=== PATIENT | male | born 2000 | race African-American/Black ===

== ENCOUNTER 2025-05-08 02:06 | Inpatient (IN) | payer BC, SELFPAY ==
[2025-05-08] VITALS (11 sets, daily range): BP systolic 123–160; BP diastolic 57–88; PULSE 50–67; RESP 14–18; TEMP 36.4–37.1; O2SAT 94–99; BMI 25.0; BMI 26.6
--- NOTE | ~2025-05-08 | CT_ITS ---
EXAMINATION: CT FEMUR WITHOUT CONTRAST, RIGHT TECHNIQUE: Axial imaging was performed from the mid pelvis to the proximal tibia. No contrast. Coronal and sagittal reformatted images were generated from the original axial data set. ALARA: The examination used one or more of the following radiation dose reduction techniques: Automated exposure control, iterative reconstruction, and/or adjustment of mA and/or KV. DLP: 433 mGY*cm INDICATION: Sickle cell, AVN evaluation Prior: None FINDINGS: There are no marrow replacing lesions. There is moderate osteoarthritis in the knee with osteophytes and moderate joint space narrowing. ACL reconstruction has been performed. There is no knee joint effusion. There are numerous ossified bodies in the left knee also which may be intra-articular. There are also likely meniscal ossicles. Soft tissues are grossly unremarkable. CT/CT femur RT wo IV con IMPRESSION: No evidence of osteonecrosis. Moderate osteoarthritis of the right knee, likely posttraumatic in nature, status post ACL reconstruction. Electronically signed by: Orestes Hays MD 05/11/2025 05:31 PM EDT
--- NOTE | ~2025-05-08 | CT_ITS ---
EXAMINATION: CT PELVIS WITHOUT CONTRAST CLINICAL INFORMATION: Leg pain, sickle cell anemia, evaluate for AVN COMPARISON: None available. TECHNIQUE: Helical scanning was performed with submillimeter collimation through the pelvis. Sagittal and coronal multiplanar 2-D reconstructions were obtained. This CT examination was performed using dose optimization techniques as appropriate, variously including the following: *Automated exposure control *Adjustment of mA and/or kV according to patient size (this includes techniques or standardized protocols for targeted exams where dose is matched to indication/reason for exam; i.e. extremities or head) *Use of iterative reconstruction technique DLP: 377 mGY*cm FINDINGS: PELVIS: There is focal gas in the superficial subcutaneous soft tissues of the right lower quadrant of the abdomen likely related to insulin injection. Pelvic soft tissues are otherwise unremarkable. There is no evidence of a hip joint effusion. OSSEOUS STRUCTURES: There is somewhat circular lesion in the left iliac bone, adjacent to the anterior articular portion of the left SI joint . It measures 9 x 8 x 10 mm (CC by transverse by AP). Centrally located lucent and peripherally there is a thin band of sclerosis. Peripheral to this lesion, there is a 3 mm thick rind of osteopenia. There is no visible extension to the joint. There is no cortical destruction. No other bony lesions are identified. CT/CT pelvis wo IV con IMPRESSION: There is a 10 mm targetoid lesion in the left iliac bone, adjacent to the anterior mid left SI joint. This could represent an intraosseous abscess, bone infarct, and is much less likely to represent an intraosseous mass/neoplasm. If clinically indicated, follow-up MRI pelvis without and with IV contrast. Electronically signed by: Orestes Hays MD 05/11/2025 12:23 PM EDT
--- NOTE | ~2025-05-08 | US_ITS ---
CLINICAL HISTORY: sickle, ?organomegaly US abdomen complete Comparison: None provided Findings: The pancreas is obscured. The aorta and inferior vena cava are normal caliber. The liver is normal in size and echotexture. There is no intrahepatic bile duct dilatation. The common duct is 3 mm in diameter. Status post cholecystectomy. The main portal vein is antegrade. The right kidney is 11.4 cm in length. The left kidney is 10.9 cm in length. There is splenomegaly. The spleen measures up to 19.3 cm. No ascites. IMPRESSION: 1. Splenomegaly. If the patient has sickle cell disease a sequestration syndrome should be considered. Alternatively splenomegaly can be seen in sickle cell thalassemia. This document has been electronically signed by: Karel Briggs MD on 05/10/2025 11:44:35
--- NOTE | ~2025-05-08 | CT_ITS ---
Examination: CT of the left femur without contrast. TECHNIQUE: Axial imaging was performed from the mid pelvis to the proximal tibia. No contrast. Coronal and sagittal reformatted images were generated from the original axial data set. ALARA: The examination used one or more of the following radiation dose reduction techniques: Automated exposure control, iterative reconstruction, and/or adjustment of mA and/or KV. DLP: 433 mGY*cm INDICATION: Sickle cell, AVN evaluation Prior: None FINDINGS: There is groundglass density with serpentine and high density in the medial metadiaphysis 5 cm in length. There is no cortical destruction. No abnormalities are identified. There is no knee joint effusion. Soft tissues are grossly normal. CT/CT femur LT wo IV con IMPRESSION: Suspected osteonecrosis involving the distal left femur, medial metadiaphysis. Electronically signed by: Orestes Hays MD 05/11/2025 05:27 PM EDT
--- NOTE | ~2025-05-08 | XR_ITS ---
CLINICAL HISTORY: CP, hx sickle cell 1 view chest x-ray. Comparison: None Findings: Normal lung volumes. Lungs are clear. No pneumothorax or pleural effusion. Heart size normal. No passive venous congestion. No midline shift or tracheal deviation. No acute fracture. Radiopaque BB within the lateral soft tissues of the left elvin thorax Impression: 1. No acute cardiopulmonary disease. This document has been electronically signed by: Lorne Murphy MD on 05/08/2025 06:03:47
[2025-05-08 02:49] LABS: MANUAL DIFF FLAG NO
[2025-05-08 02:50] LABS: Hematocrit 39.9 % (42.0-52.0); Hemoglobin 14.3 g/dl (14.0-18.0); Imm Gran Abs Auto 0.02 X10*3/uL (0.00-0.03); Imm Gran Pct Auto 0.3 % (0.0-0.4); Lymphocytes Absolute Auto 1.5 X10*3/uL (1.2-4.9); Mean Corpuscular HGB Conc 35.8 g/dl (31.0-36.0); Mean Corpuscular Hemoglobin 27.3 pg (27.0-33.0); Mean Corpuscular Volume 76.3 fL (80.0-98.0); NRBC Abs Auto 0.000 X10*3/uL (0.0-0.012); NRBC Pct Auto 0.0 /100WBC (0.0-0.2); Platelet Count 118 X10*3/uL (160-400); Red Blood Count 5.23 X10*6/uL (4.60-5.80); White Blood Count 6.6 X10*3/uL (4.8-10.8)
[2025-05-08 03:06] LABS: Alanine Aminotransferase 28 U/L (0-40); Albumin Level 4.8 g/dL (3.5-5.0); Alkaline Phosphatase 95 U/L (39-117); Anion Gap 14 (12-20); Aspartate Amino Transferase 28 U/L (5-37); Blood Urea Nitrogen 7 mg/dL (9-16); Calcium 9.0 mg/dL (8.4-10.2); Carbon Dioxide 23 mmol/L (22-29); Chloride 106 mmol/L (96-108); Creatinine Clr Calc Pharmacy 146.6; Estimated Glomerular Filt Rate > 60; Potassium 3.8 mmol/L (3.3-5.1); Sodium 139 mmol/L (135-145); Total Protein 7.4 g/dL (6.5-8.0)
[2025-05-08 05:06] LABS: Reticulocytes Absolute 0.098 X10*6/uL (0.026-0.095)
--- NOTE | 2025-05-08 05:07 | ED.GENADULT ---
HPI - General Adult General Chief complaint: General Medical Stated complaint: severe bilateral leg pain, SOB Time Seen by Provider: 05/08/25 04:58 Source: patient Mode of arrival: ambulatory Limitations: no limitations History of Present Illness ED Provider: Dr. Justina Ayers HPI narrative: Patient comes to the emergency room complaining of severe lower extremity pain, some chest discomfort and shortness of breath secondary to severe pain. 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 Patient moved to [place] 2 years ago. Patient does not have a PCP. Patient states that it has been years since he has had any pain related to his condition. Patient denies any injury. Patient states that at work he does not do anything to physical that would cause physical aches and pains. Denies nausea vomiting diarrhea, denies any recent URIs or UTIs. Patient states that his mother also has sickle cell/beta thalassemia Related Data Allergies Allergy/AdvReac Type Severity Reaction Status Date / Time No Known Allergies Allergy Verified 05/08/25 02:32 Review of Systems Review of Systems: Constitutional : No Weight loss, No Fever, No Chills, No Night Sweats, No Fatigue, No Malaise ENT/Mouth : No Hearing loss, No Ear Pain, No Nasal Congestion, No Sinus Pain, No Hoarseness, No sore throat, No Rhinorrhea, No Swallowing Difficulty Eyes: No Eye Pain, No Swelling, No Redness, No Foreign Body, No Discharge, No Vision Changes Cardiovascular : No Chest Pain, No SOB, No Dyspnea on Exertion, No Orthopnea, No Edema, No Palpitations Respiratory : No Cough, No Sputum, No Wheezing, No Smoke Exposure, patient reports shortness of breath due to pain but no difficulty breathing Gastrointestinal : No Nausea, No Vomiting, No Diarrhea, No Constipation, No abdominal Pain, No Hematochezia, No Melena Genitourinary : no irregular bleeding, No Dysuria, No Urinary Frequency, No Hematuria, No Urinary Incontinence, No Urgency, No Flank Pain, No Urinary Flow Changes, No Hesitancy Musculoskeletal : Complaining of lower extremity myalgias, rib pain Skin : No Skin Lesions, No rash Neuro : No Weakness, No Numbness, No Paresthesias, No Loss of Consciousness, No Dizziness, No Headache Psych : No Anxiety/Panic, No Depression, No SI/HI/AH/VH, No Social Issues, Heme/Lymph: No Bruising, No Bleeding,No Lymphadenopathy Endocrine : No Polyuria, No Polydipsia, No Temperature Intolerance [facility] Past Medical History Medical History (Updated 05/08/25 @ 06:43 by Justina Ayers MD) Sickle cell beta thalassemia Social History Social History Advance Directives: No Advance Directives Information Provided: Yes Physical Exam ED Exam Exam: Appearance: Alert. Oriented X3. Patient looks uncomfortable Eyes: Pupils equal, round and reactive to light. ENT: Pharynx normal. Neck: Normal inspection. Neck supple. No lymph nodes noted. No crepitus CVS: Normal heart rate and rhythm. Pulses normal. Normal S1 and S2 Respiratory: No respiratory distress. Breath sounds normal. No Wheezing. No rales Abdomen: Soft and nontender. No rigidity. No distention. Skin: Skin warm and dry. Normal skin color. Normal skin turgor. Extremities: No lower extremity edema. No Lacerations. No Rash Neuro: Oriented X 3. No motor deficit. No sensory deficit. Moving all extremities. No slurred speech. CN 2 through 12 grossly intact Psych: calm, cooperative, normal affect Vital Signs: Vital Signs - 24 hr 05/08/25 02:30 05/08/25 04:22 05/08/25 05:49 Temperature 98.2 F 98.1 F Pulse Rate 55 56 Respiratory Rate 18 16 18 Blood Pressure 132/74 123/77 Pulse Oximetry 99 98 Oxygen Delivery Method Room Air Room Air 05/08/25 06:37 Temperature 97.9 F Pulse Rate 55 Respiratory Rate 16 Blood Pressure 140/88 H Pulse Oximetry 98 Oxygen Delivery Method Room Air BMI result Body Mass Index 25.0 Course Course Course Narrative: Patient with past medical history of sickle cell beta thalassemia comes to emergency room complaining of diffuse myalgias especially in the lower extremities. Patient has been here in [place] for 2 years. Patient states that it has been many years since he has had a crisis. Even when he used to live in [place], it has been years that he did not have a crisis. All of patient's labs pending X-ray pending Patient receiving IV fluids and morphine Medications Administered Discontinued Medications Generic Name Dose Route Start Last Admin Trade Name Freq PRN Reason Stop Dose Admin Sodium Chloride 1,000 mls @ 999 mls/hr 05/08/25 05:09 05/08/25 05:49 Ns IVCONT 05/08/25 06:09 999 mls/hr .Q1H1M ONE Administration Morphine Sulfate 4 mg 05/08/25 05:09 05/08/25 05:49 Morphine Sulfate 4 Mg/Ml Cartridge IVPUSH 05/08/25 05:10 4 mg ONCE ONE Administration Protocol Medical Decision Making Medical Decision Making [facility] Narrative: My interpretation of labs: No significant abnormality in patient's hematology or chemistry, RN studies within normal limits, normal troponin, normal CPK, fairly normal reticulocyte count, serology negative for RSV COVID and flu Chest x-ray does not show any acute abnormality After 1 L of IV fluids and morphine, patient states that he feels a bit better but still in fairly significant amount of pain. Patient will likely need more fluids and pain medication. I discussed the above-mentioned with Dr. Goodwin, patient being admitted. Patient will likely need a referral to hematology/oncology, as patient does not have one Differential Diagnosis Differential Diagnoses: The differential diagnosis associated with the presentation includes (Beta thalassemia/sickle cell crisis, rhabdomyolysis) Admission/Observation Consideration of admission/observation: Escalation of care including admission/observation considered Consult Healthcare Provider Management of the patient was discussed with: Hospitalist Lab Data [facility] Lab Attestation statement: I reviewed the patient's lab results. 05/08/25 02:41 05/08/25 02:41 Labs: Lab Results 05/08/25 05/08/25 Range/Units 02:41 05:15 WBC 6.6 (4.8-10.8) X10*3/uL RBC 5.23 (4.60-5.80) X10*6/uL Hgb 14.3 (14.0-18.0) g/dl Hct 39.9 L (42.0-52.0) % MCV 76.3 L (80.0-98.0) fL MCH 27.3 (27.0-33.0) pg MCHC 35.8 (31.0-36.0) g/dl RDW 15.8 (11.0-16.0) % Plt Count 118 L (160-400) X10*3/uL MPV 10.0 (9.4-12.4) fL Immature Gran % (Auto) 0.3 (0.0-0.4) % Neut % (Auto) 65.8 (45-73) % Lymph % (Auto) 23.2 (20-40) % [place] % (Auto) 10.2 (2-11) % Eos % (Auto) 0.3 (0-4) % Baso % (Auto) 0.2 (0-2) % Lymph # (Auto) 1.5 (1.2-4.9) X10*3/uL [facility] # (Auto) 0.7 (0.1-1.2) X10*3/uL Eos # (Auto) 0.0 (0.0-0.4) X10*3/uL Baso # (Auto) 0.0 (0.0-0.2) X10*3/uL Abs Immat Gran (auto) 0.02 (0.00-0.03) X10*3/uL Absolute Neuts (auto) 4.3 (2.0-8.3) x10*3/uL Absolute Nucleated RBC 0.000 (0.0-0.012) X10*3/uL Nucleated RBC % (auto) 0.0 (0.0-0.2) /100WBC Absolute Retic 0.098 H (0.026-0.095) X10*6/uL Percent Retic 1.9 H (0.5-1.8) % Immature Retic Fraction 23.1 H (2.3-13.4) % Retic Hgb Equivalent 31.4 (30.0-35.0) pg Sodium 139 (135-145) mmol/L Potassium 3.8 (3.3-5.1) mmol/L Chloride 106 (96-108) mmol/L Carbon Dioxide 23 (22-29) mmol/L Anion Gap 14 (12-20) BUN 7 L (9-16) mg/dL Creatinine 0.88 (0.5-1.4) mg/dL Estim Creat Clear Calc 146.6 Estimated GFR > 60 Random Glucose 99 (60-115) mg/dL Calcium 9.0 (8.4-10.2) mg/dL Iron 77 (45-160) mcg/dL TIBC 288 (228-428) mcg/dL % Saturation 27 (15-50) % Unsat Iron Binding 211 ug/dL Total Bilirubin 2.4 H (0.0-1.0) mg/dL AST 28 (5-37) U/L ALT 28 (0-40) U/L Alkaline Phosphatase 95 (39-117) U/L Total Creatine Kinase 172 (38-174) U/L Troponin I High Sens 3.2 (<3.5-35.0) ng/L Total Protein 7.4 (6.5-8.0) g/dL Albumin 4.8 (3.5-5.0) g/dL Influenza Type A (PCR) NEGATIVE (Negative) Influenza Type B (PCR) NEGATIVE (Negative) RSV RNA Qual (PCR) NEGATIVE (Negative) SARS-CoV-2 RNA (RT-PCR) NEGATIVE (Negative) Independent Interpretation I performed an independent interpretation of an: EKG Interpretation: Sinus bradycardia, heart rate 44, possible early repolarization, no STEMI, QTC 355 Critical Care Time Critical Care Time Critical Care Time: Yes Total Critical Care Time: 60 Attestation: I have personally provided critical care time. Time includes review of lab data, radiology results, discussion with consultants, and monitoring for potential decompensation. Intervention performed as documented. Discharge Plan Discharge Clinical Impression: Sickle cell beta thalassemia, Myalgia Patient Disposition: Admitted As Inpatient Print Language: Pashto
--- NOTE | 2025-05-08 05:08 | ECG_ITS ---
Test Reason : CP Blood Pressure : */* mmHG Vent. Rate : 44 BPM Atrial Rate : 44 BPM P-R Int : 150 ms QRS Dur : 98 ms QT Int : 416 ms P-R-T Axes : 55 51 25 degrees QTcB Int : 355 ms Marked sinus bradycardia Abnormal ECG No previous ECGs available Referred By: Justina Ayers Electronically Signed By: KARRIE HAWKINS MD
[2025-05-08 05:26] LABS: Iron 77 mcg/dL (45-160); Percent Iron Saturation 27 % (15-50); Total Iron Binding Capacity 288 mcg/dL (228-428); Unsaturated Iron Binding 211 ug/dL
[2025-05-08 05:28] LABS: Troponin-I High Sensitivity 3.2 ng/L (<3.5-35.0)
[2025-05-08 05:57] LABS: Resp Syncy Virus RNA Qual PCR NEGATIVE (Negative); SARS COV2 PCR INHOUSE NEGATIVE (Negative)
[2025-05-08] MEDS: Lactated Ringers 1,000 ML 100 ML IVCONT ×2 (07:07→15:55)
--- NOTE | 2025-05-08 07:15 | PC.NURSE ---
This Rn assumd care of patient @ 0700. 20G in [facility] currently running LR @ 100ml/hr. Patient c/o pain in Sakshi legs rated 10/10. Administered PRN dilaudid, effectiveness pending. EKG sinus toni, CXR = negative. [place] [facility] [place]
--- NOTE | 2025-05-08 08:04 | PM.IMHP ---
History of Present Illness Date of Service: 05/08/25 Chief Complaint: leg pain 25M PMH betathallasemia/sickle cell - last crisis in childhood, presented with leg pain. Patient states that pain is ongoing for about 1 day. Feels achy specially in joints, mild shortness of breath. Has not had a crisis in over 20 years but suspects that is what is going on. Denies chest pain, fever, chills. In ED, chest x-ray negative, saturating well on room air, lab significant for total bilirubin of 2.4 otherwise unremarkable. Review of Systems Review of Systems: Yes all other systems are reviewed and are negative [facility] Medical History Sickle cell beta thalassemia Social History Advance Directives: No Advance Directives Information Provided: Yes Meds Allergies Allergy/AdvReac Type Severity Reaction Status Date / Time No Known Allergies Allergy Verified 05/08/25 02:32 Active Medications: Current Medications Acetaminophen (Acetaminophen 325 Mg Tablet) 650 mg PO Q6H PRN PRN Reason: Pain, Mild 1-3,fever,headache Benzonatate (Benzonatate 100 Mg Capsule) 100 mg PO TID PRN PRN Reason: Cough Calcium Carbonate (Calcium Carbonate 750 Mg Tab.Chew) 750 mg PO Q4H PRN PRN Reason: Heartburn Docusate Sodium (Docusate Sodium 100 Mg Capsule) 100 mg PO BID [facility] Last Admin: 05/08/25 08:00 Dose: 100 mg Enoxaparin Sodium (Enoxaparin Sodium 40 Mg/0.4 Ml Syringe) 40 mg SUBCUT Q24H [facility] Last Admin: 05/08/25 07:07 Dose: 40 mg Hydromorphone HCl (Hydromorphone Hcl 0.5 Mg/0.5 Ml Syringe) 1 mg IVPUSH Q4H PRN; Protocol PRN Reason: Pain, Severe (Pain Scale 7-10) Last Admin: 05/08/25 07:06 Dose: 1 mg Lactated Ringer's (Lr) 1,000 mls @ 100 mls/hr IVCONT .Q10H [facility] Last Admin: 05/08/25 07:07 Dose: 100 mls/hr Magnesium Hydroxide (Milk Of Magnesia 30 Ml Oral.Susp) 30 ml PO DAILY PRN PRN Reason: Constipation Melatonin (Melatonin 3 Mg Tablet) 6 mg PO BEDTIME PRN PRN Reason: Insomnia Polyethylene Glycol (Polyethylene Glycol 3350 17 Gm Powd.Pack) 17 gm PO DAILY PRN PRN Reason: Constipation Senna (Sennosides 8.6 Mg Tablet) 17.2 mg PO BEDTIME [facility]INO Sodium Chloride (0.9 % Sodium Chloride Flush 3 Ml Syringe) 3 ml IVFLUSH QSHIFT NINO Physical Exam Vital Signs and Narrative: Vital Signs: Last Vital Signs Temp 97.9 F 05/08/25 06:37 Pulse 55 05/08/25 06:37 Resp 14 05/08/25 07:06 BP 140/88 H 05/08/25 06:37 Pulse Ox 98 05/08/25 06:37 O2 Del Method Room Air 05/08/25 06:37 BMI result Body Mass Index 25.0 General: AO X 3, no acute distress Resp: CTA bilateral, no accessory muscles used CVS: S1,S2,RRR GI: soft, non tender, non distended Neuro: motor grossly intact, alert Psych: appropriate affect, appropriate insight Results Labs 05/08/25 02:41 05/08/25 02:41 Labs: Laboratory Results - last 24 hr 05/08/25 05/08/25 02:41 05:15 MCV 76.3 L MCH 27.3 MCHC 35.8 RDW 15.8 Plt Count 118 L MPV 10.0 Immature Gran % (Auto) 0.3 Neut % (Auto) 65.8 Lymph % (Auto) 23.2 Centre % (Auto) 10.2 Eos % (Auto) 0.3 Baso % (Auto) 0.2 Lymph # (Auto) 1.5 Centre # (Auto) 0.7 Eos # (Auto) 0.0 Baso # (Auto) 0.0 Abs Immat Gran (auto) 0.02 Absolute Neuts (auto) 4.3 Absolute Nucleated RBC 0.000 Nucleated RBC % (auto) 0.0 Absolute Retic 0.098 H Percent Retic 1.9 H Immature Retic Fraction 23.1 H Retic Hgb Equivalent 31.4 Anion Gap 14 Estim Creat Clear Calc 146.6 Estimated GFR > 60 Random Glucose 99 Calcium 9.0 Iron 77 TIBC 288 % Saturation 27 Unsat Iron Binding 211 Total Bilirubin 2.4 H AST 28 ALT 28 Alkaline Phosphatase 95 Total Creatine Kinase 172 Total Protein 7.4 Albumin 4.8 Influenza Type A (PCR) NEGATIVE Influenza Type B (PCR) NEGATIVE RSV RNA Qual (PCR) NEGATIVE SARS-CoV-2 RNA (RT-PCR) NEGATIVE Assessment and Plan (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 Plan 25M PMH betathallasemia/sickle cell - last crisis in childhood, presented with bilateral leg pain bilateral leg pain, likely sickle cell crisis ivf, o2, pain control, monitor labs dvt prophylaxis - lovenox full code Quality Stroke Does the patient have a stroke diagnosis?: No VTE Prior VTE?: No VTE Risk Level:: Medical - moderate - high VTE Device Contraindication: Treatment Not Indicated VTE Drug Contraindication: N/A - Med Ordered
--- NOTE | 2025-05-08 08:20 | PHA.MEDREC ---
Addendum entered by Stephen Kwong PharmD 05/08/25 08:26: reviewed Original Note: Pharmacy Consult ? Medication Reconciliation Pharmacy has completed the medication reconciliation. Patient states he is not on any medications.
--- NOTE | 2025-05-08 11:28 | MHC.CM.PN ---
Pt. lives with a roommate, he does not use home health services or DME, he does not have a PCP, brochure given. He is able to arrange transport home at [place], DCP: home, self care. CM to follow for DC needs.
[2025-05-08] MEDS: 0.9 % Sodium Chloride Flush 3 ML SYRINGE IVFLUSH (15:58)
[2025-05-09] MEDS: Lactated Ringers 1,000 ML 100 ML IVCONT ×3 (00:59→20:53)
[2025-05-09 03:03] VITALS: BP 126/75; PULSE 60; RESP 18; TEMP 36.9; O2SAT 97
[2025-05-09 06:26] LABS: MANUAL DIFF FLAG NO
[2025-05-09 06:40] LABS: Hematocrit 36.0 % (42.0-52.0); Hemoglobin 13.0 g/dl (14.0-18.0); Imm Gran Abs Auto 0.01 X10*3/uL (0.00-0.03); Imm Gran Pct Auto 0.3 % (0.0-0.4); Lymphocytes Absolute Auto 0.8 X10*3/uL (1.2-4.9); Mean Corpuscular HGB Conc 36.1 g/dl (31.0-36.0); Mean Corpuscular Hemoglobin 27.8 pg (27.0-33.0); Mean Corpuscular Volume 77.1 fL (80.0-98.0); NRBC Abs Auto 0.000 X10*3/uL (0.0-0.012); NRBC Pct Auto 0.0 /100WBC (0.0-0.2); Red Blood Count 4.67 X10*6/uL (4.60-5.80); Reticulocytes Absolute 0.080 X10*6/uL (0.026-0.095); White Blood Count 3.9 X10*3/uL (4.8-10.8)
[2025-05-09 06:50] LABS: Alanine Aminotransferase 27 U/L (0-40); Albumin Level 4.4 g/dL (3.5-5.0); Alkaline Phosphatase 92 U/L (39-117); Anion Gap 15 (12-20); Aspartate Amino Transferase 29 U/L (5-37); Blood Urea Nitrogen 6 mg/dL (9-16); Calcium 9.0 mg/dL (8.4-10.2); Carbon Dioxide 26 mmol/L (22-29); Chloride 102 mmol/L (96-108); Creatinine Clr Calc Pharmacy 179.1; Estimated Glomerular Filt Rate > 60; Magnesium 1.8 mg/dL (1.6-2.6); Potassium 3.9 mmol/L (3.3-5.1); Sodium 139 mmol/L (135-145); Total Protein 6.9 g/dL (6.5-8.0)
[2025-05-09 07:24] LABS: Platelet Count 78 X10*3/uL (160-400)
[2025-05-09] MEDS: 0.9 % Sodium Chloride Flush 3 ML SYRINGE IVFLUSH (07:26)
[2025-05-09 07:59] VITALS: BP 135/84; PULSE 60; RESP 16; TEMP 37.2; O2SAT 99
--- NOTE | 2025-05-09 08:43 | HO.PM.IMPN ---
Subjective Subjective Date of Service: 05/09/25 Interval History: leg pain Physical Exam Exam: Exam: General: AO X 3, no acute distress Resp: CTA bilateral, no accessory muscles used CVS: S1,S2,RRR GI: soft, non tender, non distended Neuro: motor grossly intact, alert Psych: appropriate affect, appropriate insight Vital Signs: Vital Signs: Last Vital Signs Temp 98.9 F 05/09/25 07:59 Pulse 60 05/09/25 07:59 Resp 16 05/09/25 07:59 BP 135/84 05/09/25 07:59 Pulse Ox 99 05/09/25 07:59 O2 Del Method Room Air 05/09/25 07:59 BMI result Body Mass Index 26.6 Objective Data Active Medications Acetaminophen (Acetaminophen 325 Mg Tablet) 650 mg PO Q6H PRN PRN Reason: Pain, Mild 1-3,fever,headache Benzonatate (Benzonatate 100 Mg Capsule) 100 mg PO TID PRN PRN Reason: Cough Calcium Carbonate (Calcium Carbonate 750 Mg Tab.Chew) 750 mg PO Q4H PRN PRN Reason: Heartburn Docusate Sodium (Docusate Sodium 100 Mg Capsule) 100 mg PO BID [facility] Last Admin: 05/09/25 07:20 Dose: 100 mg Documented By: YOBANI Enoxaparin Sodium (Enoxaparin Sodium 40 Mg/0.4 Ml Syringe) 40 mg SUBCUT Q24H [facility] Last Admin: 05/09/25 06:18 Dose: 40 mg Documented By: PARISH Hydromorphone HCl (Hydromorphone Hcl 0.5 Mg/0.5 Ml Syringe) 1 mg IVPUSH Q2H PRN; Protocol PRN Reason: Pain, Severe (Pain Scale 7-10) Last Admin: 05/09/25 07:19 Dose: 1 mg Documented By: YOBANI Lactated Ringer's (Lr) 1,000 mls @ 100 mls/hr IVCONT .Q10H [facility] Last Admin: 05/09/25 00:59 Dose: 100 mls/hr Documented By: PARISH Magnesium Hydroxide (Milk Of Magnesia 30 Ml Oral.Susp) 30 ml PO DAILY PRN PRN Reason: Constipation Melatonin (Melatonin 3 Mg Tablet) 6 mg PO BEDTIME PRN PRN Reason: Insomnia Polyethylene Glycol (Polyethylene Glycol 3350 17 Gm Powd.Pack) 17 gm PO DAILY PRN PRN Reason: Constipation Senna (Sennosides 8.6 Mg Tablet) 17.2 mg PO BEDTIME [facility] Last Admin: 05/08/25 20:42 Dose: 17.2 mg Documented By: PARISH Sodium Chloride (0.9 % Sodium Chloride Flush 3 Ml Syringe) 3 ml IVFLUSH QSHIFT [facility] Last Admin: 05/09/25 07:26 Dose: 3 ml Documented By: YOBANI Labs 05/09/25 06:18 05/09/25 06:18 Labs: Laboratory Results - last 24 hr 05/09/25 06:18 MCV 77.1 L MCH 27.8 MCHC 36.1 H RDW 15.5 Plt Count 78 L D MPV 10.2 Immature Gran % (Auto) 0.3 Neut % (Auto) 62.9 Lymph % (Auto) 21.2 Stone % (Auto) 14.8 H Eos % (Auto) 0.5 Baso % (Auto) 0.3 Lymph # (Auto) 0.8 L [place] # (Auto) 0.6 Eos # (Auto) 0.0 Baso # (Auto) 0.0 Abs Immat Gran (auto) 0.01 Absolute Neuts (auto) 2.4 Absolute Nucleated RBC 0.000 Nucleated RBC % (auto) 0.0 Absolute Retic 0.080 Percent Retic 1.7 Immature Retic Fraction 21.7 H Retic Hgb Equivalent 30.0 Anion Gap 15 Estim Creat Clear Calc 179.1 Estimated GFR > 60 Random Glucose 100 Calcium 9.0 Magnesium 1.8 Total Bilirubin 3.1 H Direct Bilirubin 0.5 AST 29 ALT 27 Alkaline Phosphatase 92 Total Protein 6.9 Albumin 4.4 Assessment and Plan (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 Plan 25M PMH betathallasemia/sickle cell - last crisis in childhood, presented with bilateral leg pain bilateral leg pain,due to sickle cell crisis ivf, o2, pain control, monitor labs, hem eval dvt prophylaxis - lovenox full code reason for continued hospitalization:pain control Quality Stroke Does the patient have a stroke diagnosis?: No VTE Prior VTE?: No VTE Risk Level:: Medical - moderate - high VTE Device Contraindication: Treatment Not Indicated VTE Drug Contraindication: N/A - Med Ordered
[2025-05-09 12:00] VITALS: BP 141/85; PULSE 57; RESP 14; TEMP 36.9; O2SAT 100
[2025-05-09 16:00] VITALS: BP 127/84; PULSE 64; RESP 14; TEMP 36.9; O2SAT 99
[2025-05-09 20:00] VITALS: BP 128/72; PULSE 64; RESP 16; TEMP 37; O2SAT 98
[2025-05-09 23:54] VITALS: BP 119/64; PULSE 73; RESP 18; TEMP 36.8; O2SAT 97
[2025-05-10 03:13] VITALS: BP 108/56; PULSE 61; RESP 18; TEMP 36.6; O2SAT 99
[2025-05-10] MEDS: Lactated Ringers 1,000 ML 100 ML IVCONT (06:19)
[2025-05-10 06:26] LABS: Hematocrit 32.7 % (42.0-52.0); Hemoglobin 11.8 g/dl (14.0-18.0); Mean Corpuscular HGB Conc 36.1 g/dl (31.0-36.0); Mean Corpuscular Hemoglobin 27.6 pg (27.0-33.0); Mean Corpuscular Volume 76.4 fL (80.0-98.0); NRBC Abs Auto 0.000 X10*3/uL (0.0-0.012); NRBC Pct Auto 0.0 /100WBC (0.0-0.2); Platelet Count 64 X10*3/uL (160-400); Red Blood Count 4.28 X10*6/uL (4.60-5.80); White Blood Count 3.1 X10*3/uL (4.8-10.8)
[2025-05-10 06:44] LABS: Alanine Aminotransferase 33 U/L (0-40); Albumin Level 4.2 g/dL (3.5-5.0); Alkaline Phosphatase 87 U/L (39-117); Anion Gap 13 (12-20); Aspartate Amino Transferase 39 U/L (5-37); Blood Urea Nitrogen 8 mg/dL (9-16); Calcium 8.8 mg/dL (8.4-10.2); Carbon Dioxide 29 mmol/L (22-29); Chloride 102 mmol/L (96-108); Creatinine Clr Calc Pharmacy 179.1; Estimated Glomerular Filt Rate > 60; Magnesium 1.8 mg/dL (1.6-2.6); Potassium 3.5 mmol/L (3.3-5.1); Sodium 140 mmol/L (135-145); Total Protein 6.7 g/dL (6.5-8.0)
[2025-05-10 08:00] VITALS: BP 115/59; PULSE 63; RESP 14; TEMP 36.4; O2SAT 98
--- NOTE | 2025-05-10 08:18 | P.PNIM_ITS ---
Subjective Subjective Date of Service: 05/10/25 Interval History: a bit better but still needing iv pain meds Physical Exam 2 Exam: Exam: General: AO X 3, no acute distress Resp: CTA bilateral, no accessory muscles used CVS: S1,S2,RRR GI: soft, non tender, non distended Neuro: motor grossly intact, alert Psych: appropriate affect, appropriate insight Vital Signs: Vital Signs: Last Vital Signs Temp 97.5 F 05/10/25 08:00 Pulse 63 05/10/25 08:00 Resp 14 05/10/25 08:00 BP 115/59 L 05/10/25 08:00 Pulse Ox 98 05/10/25 08:00 O2 Del Method Room Air 05/10/25 08:00 BMI result Body Mass Index 26.6 Objective Data Active Medications Acetaminophen (Acetaminophen 325 Mg Tablet) 650 mg PO Q6H PRN PRN Reason: Pain, Mild 1-3,fever,headache Benzonatate (Benzonatate 100 Mg Capsule) 100 mg PO TID PRN PRN Reason: Cough Calcium Carbonate (Calcium Carbonate 750 Mg Tab.Chew) 750 mg PO Q4H PRN PRN Reason: Heartburn Docusate Sodium (Docusate Sodium 100 Mg Capsule) 100 mg PO BID [facility] Last Admin: 05/09/25 20:50 Dose: 100 mg Documented By: PARISH Enoxaparin Sodium (Enoxaparin Sodium 40 Mg/0.4 Ml Syringe) 40 mg SUBCUT Q24H [facility] Last Admin: 05/10/25 06:19 Dose: 40 mg Documented By: PARISH Folic Acid (Folic Acid 1 Mg Tablet) 1 mg PO DAILY [facility] Last Admin: 05/09/25 09:50 Dose: 1 mg Documented By: YOBANI Hydromorphone HCl (Hydromorphone Hcl 1 Mg/Ml Syringe) 1 mg IVPUSH Q4H PRN; Protocol PRN Reason: Pain, Severe (Pain Scale 7-10) Last Admin: 05/10/25 05:24 Dose: 1 mg Documented By: PARISH Ibuprofen (Ibuprofen 400 Mg Tablet) 400 mg PO Q6H PRN PRN Reason: Pain, Moderate(Pain Scale 4-6) Last Admin: 05/10/25 04:02 Dose: 400 mg Documented By: PARISH Magnesium Hydroxide (Milk Of Magnesia 30 Ml Oral.Susp) 30 ml PO DAILY PRN PRN Reason: Constipation Melatonin (Melatonin 3 Mg Tablet) 6 mg PO BEDTIME PRN PRN Reason: Insomnia Polyethylene Glycol (Polyethylene Glycol 3350 17 Gm Powd.Pack) 17 gm PO DAILY PRN PRN Reason: Constipation Senna (Sennosides 8.6 Mg Tablet) 17.2 mg PO BEDTIME [facility] Last Admin: 05/09/25 20:50 Dose: 17.2 mg Documented By: PARISH Sodium Chloride (0.9 % Sodium Chloride Flush 3 Ml Syringe) 3 ml IVFLUSH QSHIFT [facility] Last Admin: 05/10/25 00:30 Dose: Not Given Documented By: PARISH Non-Admin Reason: IV Running Labs 05/10/25 05:44 05/10/25 05:44 Labs: Laboratory Results - last 24 hr 05/09/25 05/10/25 06:18 05:44 MCV 76.4 L MCH 27.6 MCHC 36.1 H RDW 15.3 Plt Count 64 L MPV 10.0 Absolute Nucleated RBC 0.000 Nucleated RBC % (auto) 0.0 Anion Gap 13 Estim Creat Clear Calc 179.1 Estimated GFR > 60 Random Glucose 96 Calcium 8.8 Magnesium 1.8 Total Bilirubin 2.7 H Direct Bilirubin 0.6 H AST 39 H ALT 33 Alkaline Phosphatase 87 Lactate Dehydrogenase 249 Total Protein 6.7 Albumin 4.2 Assessment and Plan (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
--- NOTE | 2025-05-10 08:46 | PM.HEMONCCN ---
Subjective - Subjective Chief complaint: Sickle pain crisis Patient: new to practice Consult date: 05/10/25 Primary Care Provider: None Physician Machine Sewer Utilized?: No - [place] Speaking HPI - Consult Narrative Reason for consult: Sickle pain crisis, thrombocytopenia Narrative: Ochoa Carey is a 25 year old male with history of beta+ thalassemia trait who presented to emergency room on 05/08/2025 with complaints of bilateral lower extremity, thigh and leg pain that worsened rapidly a few hours before presentation. Patient states that he was in his usual state of health and did not have any triggering factors such as fever or symptoms of upper respiratory infection. He was diagnosed with beta thalassemia trait in infancy. His mother has thalassemia trait and his father had the sickle trait. He was admitted at age 3 for a pain crisis, he used to see a sr. social media & mobile manager as a child but never as an adult. He was on folic acid for a few years but later on he was told that he did not need any medications as his counts were normal. He moved from [place] for a job 2 years ago. His work is mostly at a desk and is not demanding physically. He smokes cigars and uses marijuana. No history of alcoholism. Labs on admission revealed WBC of 6.6, hemoglobin of 14.3 gram/dL with MCV 76.3. His platelet counts were 118 K. He was noted to have mild hyperbilirubinemia but normal LDH. With hydration, his hemoglobin dropped to 13 gram/dL-11.8 gram/dL. His platelets have slowly trended down. He has not had a PCP as an adult and there is no previous blood work to compare. Review of Systems - Constitutional Reports as per HPI, Denies no additional constitutional complaints, Denies fever(s), Denies malaise, Denies night sweats - Cardiovascular Reports no additional cardiovascular complaints, Denies chest pain, Denies fast heart rate - Respiratory Reports no additional respiratory complaints, Denies cough, Denies dyspnea - Gastrointestinal Reports no additional gastrointestinal complaints, Denies change in stools PMFSH Medical History: Medical History (Last Reviewed 05/08/25 @ 08:07 by Girma Ortiz MD) Sickle cell beta thalassemia Social History: Social History (Last Reviewed 05/08/25 @ 08:07 by Girma Ortiz MD) Living Situation History: Household Members: Other Household Members Other:: roommate Housing: Apartment Do you presently have visiting nurse or other home services: No Tobacco History: Patient Tobacco Use Status: Current someday Tobacco Tobacco use type: Cigar e-Cigarette/Vaping Use: Currently Using Second Hand Smoke Exposure: No Substance Use History: Substance Use Type: Marijuana Occupation Assessmet: service: No Home Medications and Allergies Current Medications: Current Medications Acetaminophen (Acetaminophen 325 Mg Tablet) 650 mg PO Q6H PRN PRN Reason: Pain, Mild 1-3,fever,headache Benzonatate (Benzonatate 100 Mg Capsule) 100 mg PO TID PRN PRN Reason: Cough Calcium Carbonate (Calcium Carbonate 750 Mg Tab.Chew) 750 mg PO Q4H PRN PRN Reason: Heartburn Docusate Sodium (Docusate Sodium 100 Mg Capsule) 100 mg PO BID [facility] Last Admin: 05/10/25 08:39 Dose: 100 mg Enoxaparin Sodium (Enoxaparin Sodium 40 Mg/0.4 Ml Syringe) 40 mg SUBCUT Q24H [facility] Last Admin: 05/10/25 06:19 Dose: 40 mg Folic Acid (Folic Acid 1 Mg Tablet) 1 mg PO DAILY [facility] Last Admin: 05/10/25 08:37 Dose: 1 mg Hydromorphone HCl (Hydromorphone Hcl 1 Mg/Ml Syringe) 1 mg IVPUSH Q4H PRN; Protocol PRN Reason: Pain, Severe (Pain Scale 7-10) Last Admin: 05/10/25 05:24 Dose: 1 mg Ibuprofen (Ibuprofen 400 Mg Tablet) 400 mg PO Q6H PRN PRN Reason: Pain, Moderate(Pain Scale 4-6) Last Admin: 05/10/25 04:02 Dose: 400 mg Magnesium Hydroxide (Milk Of Magnesia 30 Ml Oral.Susp) 30 ml PO DAILY PRN PRN Reason: Constipation Melatonin (Melatonin 3 Mg Tablet) 6 mg PO BEDTIME PRN PRN Reason: Insomnia Polyethylene Glycol (Polyethylene Glycol 3350 17 Gm Powd.Pack) 17 gm PO DAILY PRN PRN Reason: Constipation Senna (Sennosides 8.6 Mg Tablet) 17.2 mg PO BEDTIME [facility] Last Admin: 05/09/25 20:50 Dose: 17.2 mg Sodium Chloride (0.9 % Sodium Chloride Flush 3 Ml Syringe) [facility] Last Admin: 05/10/25 08:37 Dose: Not Given Home Medications ?Medication ?Instructions ?Recorded ?Confirmed ?Type No Known Home Meds 05/08/25 05/08/25 History Allergies Allergy/AdvReac Type Severity Reaction Status Date / Time No Known Allergies Allergy Verified 05/08/25 02:32 Physical Exam Vital signs: Vital Signs Temp 97.5 F 05/10/25 08:00 Pulse 63 05/10/25 08:00 Resp 14 05/10/25 08:00 BP 115/59 L 05/10/25 08:00 Pulse Ox 98 05/10/25 08:00 O2 Del Method Room Air 05/10/25 08:00 Intake & Output 05/09/25 05/10/25 05/10/25 18:59 06:59 18:59 Intake Total 1999 / 3906.666 1906.666 / 3906.666 Balance 1999 / 3906.666 1906.666 / 3906.666 Intake: Intake, Oral Amount 1000 / 1000 Intake, IV Amount 1000 / 2906.666 1906.666 / 2906.666 Lactated Ringers 1,000 ml @ 100 1000 / 2906.666 1906.666 / 2906.666 mls/hr IVCONT .Q10H [facility] Rx#: [id number] Other: Meal Refused No NPO No Breakfast % Eaten 10 Lunch % Eaten 0% Dinner % Eaten 10 Eating (Feeding) Ability Independent Number of Unmeasured Voids 2 0 Number of Bowel Movements 1 Last Bowel Movement 05/09/25 Stool Bathroom Stool Amount Moderate Stool Color Brown Stool Consistency Semi Formed Weight 94 kg - Constitutional Present: no acute distress - Routine HEENT Exam Head: Present: normal inspection Eye: Present: EOMI, PERRL - Routine Neck Exam Present: supple. Absent: lymphadenopathy - Routine Respiratory Exam Present: CTAB. Absent: accessory muscle use, wheezes - Routine Cardiovascular Exam Cardiovascular: Present: RRR, S1, S2 - Routine Abdominal Exam Present: soft. Absent: guarding - Routine Extremities Exam Present: pulses intact. Absent: pedal edema - Routine Skin Exam Present: intact Hem/Onc Consult Result - Labs CBC & Chem 7: 05/10/25 05:44 05/10/25 05:44 Labs: Short CBC 05/10/25 Range/Units 05:44 WBC 3.1 L (4.8-10.8) X10*3/uL Hgb 11.8 L (14.0-18.0) g/dl Hct 32.7 L (42.0-52.0) % Plt Count 64 L (160-400) X10*3/uL BMP 05/10/25 05:44 Sodium 140 Potassium 3.5 Chloride 102 Carbon Dioxide 29 BUN 8 L Creatinine 0.72 Calcium 8.8 Liver Function 05/10/25 Range/Units 05:44 Total Bilirubin 2.7 H (0.0-1.0) mg/dL Direct Bilirubin 0.6 H (0.0-0.5) mg/dL AST 39 H (5-37) U/L ALT 33 (0-40) U/L Alkaline Phosphatase 87 (39-117) U/L Albumin 4.2 (3.5-5.0) g/dL Assessment and Plan Patient Active problem list reviewed?: Yes (1) Sickle cell beta thalassemia Status: Acute Assessment and plan: 1. This is a 25-year-old male with sickle beta thalassemia trait who has been admitted with bilateral lower extremity pain. According to patient as well as his mother, patient was diagnosed with this condition in infancy in [place] where he is from. He was admitted at age 3 for her pain crisis, he was on folic acid briefly as a child. He has never seen a sr. social media & mobile manager as an adult. He presented with bilateral thigh and lower extremity pain without any triggering factors. Admission labs revealed microcytosis without anemia but low platelet count of 118 K. he has been started on hydration, folic acid supplementation and Lovenox for DVT prophylaxis. His platelet count as well as RBC and WBC counts are trending down. Part of this could be dilutional, mild hemolysis. 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 Lovenox causing type 1 thrombocytopenia or non immune mediated thrombocytopenia is also a possibility. Discontinue Lovenox. Check ultrasound abdomen to look for hepatosplenomegaly. Continue folic acid, pain management. Sickle pain crisis is generally unusual in patients with sickle/beta thalassemia trait. Submit hemoglobin electrophoresis. Patient will be referred to sickle Clinic at [facility] upon discharge. Thank you for the consultation. - Time Spent With Patient Time Spent with Patient (in minutes): 30
[2025-05-10 12:00] VITALS: BP 126/76; PULSE 57; RESP 14; TEMP 36.6; O2SAT 98
[2025-05-10 14:09] LABS: Appearance Urine Clear; Glucose Urine UA Negative (Negative); PH 7.5 (5.0-9.0); Specific Gravity - Urine <= 1.005 (1.005-1.025)
[2025-05-10 16:00] VITALS: BP 123/73; PULSE 63; RESP 14; TEMP 36.7; O2SAT 99
[2025-05-10] MEDS: 0.9 % Sodium Chloride Flush 3 ML SYRINGE IVFLUSH ×2 (16:35→20:11)
[2025-05-10 19:40] VITALS: BP 117/77; PULSE 61; RESP 16; TEMP 36.4; O2SAT 99
--- NOTE | 2025-05-10 20:11 | PC.NURSE ---
2010: pt reporting pain 06/17 and requested motrin to try to help pain at this time, Motrin given per pt request for pain of 06/17. Will reassess. 2121: pain reassessed to have no change, still at 06/17 pain t BLE per pt, Dilaudid given for 06/17 pain still. 2229: pt is able to sleep RR even and non-labored with no apparent distress at this time. Will continue to reassess pain.
[2025-05-10 23:50] VITALS: BP 115/57; PULSE 72; RESP 16; TEMP 36.6; O2SAT 98
[2025-05-11 04:00] VITALS: BP 124/77; PULSE 71; RESP 16; TEMP 36.4; O2SAT 98
[2025-05-11 06:13] LABS: Hematocrit 33.6 % (42.0-52.0); Hemoglobin 12.0 g/dl (14.0-18.0); Mean Corpuscular HGB Conc 35.7 g/dl (31.0-36.0); Mean Corpuscular Hemoglobin 27.5 pg (27.0-33.0); Mean Corpuscular Volume 76.9 fL (80.0-98.0); NRBC Abs Auto 0.000 X10*3/uL (0.0-0.012); NRBC Pct Auto 0.0 /100WBC (0.0-0.2); Red Blood Count 4.37 X10*6/uL (4.60-5.80); White Blood Count 3.3 X10*3/uL (4.8-10.8)
[2025-05-11 06:16] LABS: Platelet Count 72 X10*3/uL (160-400)
[2025-05-11 06:32] LABS: Anion Gap 13 (12-20); Blood Urea Nitrogen 8 mg/dL (9-16); Calcium 9.3 mg/dL (8.4-10.2); Carbon Dioxide 29 mmol/L (22-29); Chloride 102 mmol/L (96-108); Creatinine Clr Calc Pharmacy 174.3; Estimated Glomerular Filt Rate > 60; Potassium 3.9 mmol/L (3.3-5.1); Sodium 140 mmol/L (135-145)
[2025-05-11 07:34] VITALS: BP 118/75; PULSE 69; RESP 18; TEMP 36.8; O2SAT 98
[2025-05-11] MEDS: 0.9 % Sodium Chloride Flush 3 ML SYRINGE IVFLUSH ×3 (08:14→20:54)
--- NOTE | 2025-05-11 08:28 | HO.PM.IMPN ---
Subjective Subjective Date of Service: 05/11/25 Interval History: Left leg feeling better, right leg feeling worse, still needing pain meds Physical Exam Exam: Exam: General: AO X 3, no acute distress Resp: CTA bilateral, no accessory muscles used CVS: S1,S2,RRR GI: soft, non tender, non distended Neuro: motor grossly intact, alert Psych: appropriate affect, appropriate insight Vital Signs: Vital Signs: Last Vital Signs Temp 98.3 F 05/11/25 07:34 Pulse 69 05/11/25 07:34 Resp 18 05/11/25 07:34 BP 118/75 05/11/25 07:34 Pulse Ox 98 05/11/25 07:34 O2 Del Method Room Air 05/11/25 07:34 BMI result Body Mass Index 26.6 Objective Data Active Medications Acetaminophen (Acetaminophen 325 Mg Tablet) 650 mg PO Q6H PRN PRN Reason: Pain, Mild 1-3,fever,headache Benzonatate (Benzonatate 100 Mg Capsule) 100 mg PO TID PRN PRN Reason: Cough Calcium Carbonate (Calcium Carbonate 750 Mg Tab.Chew) 750 mg PO Q4H PRN PRN Reason: Heartburn Docusate Sodium (Docusate Sodium 100 Mg Capsule) 100 mg PO BID [facility] Last Admin: 05/11/25 08:13 Dose: 100 mg Documented By: THANIA Folic Acid (Folic Acid 1 Mg Tablet) 1 mg PO DAILY [facility] Last Admin: 05/11/25 08:13 Dose: 1 mg Documented By: THANIA Hydromorphone HCl (Hydromorphone Hcl 1 Mg/Ml Syringe) 1 mg IVPUSH Q4H PRN; Protocol PRN Reason: Pain, Severe (Pain Scale 7-10) Last Admin: 05/11/25 08:13 Dose: 1 mg Documented By: THANIA Ibuprofen (Ibuprofen 400 Mg Tablet) 400 mg PO Q6H PRN PRN Reason: Pain, Moderate(Pain Scale 4-6) Last Admin: 05/10/25 20:11 Dose: 400 mg Documented By: LUCHO Comments: per pt request ibuprofen for 9/10 pain Magnesium Hydroxide (Milk Of Magnesia 30 Ml Oral.Susp) 30 ml PO DAILY PRN PRN Reason: Constipation Melatonin (Melatonin 3 Mg Tablet) 6 mg PO BEDTIME PRN PRN Reason: Insomnia Last Admin: 05/10/25 20:11 Dose: 6 mg Documented By: LUCHO Polyethylene Glycol (Polyethylene Glycol 3350 17 Gm Powd.Pack) 17 gm PO DAILY PRN PRN Reason: Constipation Senna (Sennosides 8.6 Mg Tablet) 17.2 mg PO BEDTIME [facility] Last Admin: 05/10/25 20:10 Dose: 17.2 mg Documented By: LUCHO Sodium Chloride (0.9 % Sodium Chloride Flush 3 Ml Syringe) 3 ml IVFLUSH QSHIFT [facility] Last Admin: 05/11/25 08:14 Dose: 3 ml Documented By: THANIA Labs 05/11/25 05:25 05/11/25 05:25 Labs: Laboratory Results - last 24 hr 05/10/25 05/11/25 13:58 05:25 MCV 76.9 L MCH 27.5 MCHC 35.7 RDW 15.3 Plt Count 72 L MPV 10.4 Absolute Nucleated RBC 0.000 Nucleated RBC % (auto) 0.0 Anion Gap 13 Estim Creat Clear Calc 174.3 Estimated GFR > 60 Random Glucose 104 Calcium 9.3 Urine Color Yellow Urine Appearance Clear Urine pH 7.5 Ur Specific [place] <= 1.005 Urine Protein Negative Urine Glucose (UA) Negative Urine Ketones Negative Urine Blood Negative Urine Nitrite Negative Ur Leukocyte Esterase Negative Assessment and Plan (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 Plan 25M PMH betathallasemia/sickle cell - last crisis in childhood, presented with bilateral leg pain bilateral leg pain,due to sickle cell crisis ivf, o2, pain control, monitor labs, hem following Follow up hemoglobin electrophoresis Ultrasound with splenomegaly acute thrombocytopenia ?due to hemolysis monitor dvt prophylaxis - continue lovenox, will change to mechanical if plt<50K full code reason for continued hospitalization:pain control Quality Stroke Does the patient have a stroke diagnosis?: No VTE Prior VTE?: No VTE Risk Level:: Medical - moderate - high VTE Device Contraindication: Treatment Not Indicated VTE Drug Contraindication: N/A - Med Ordered
[2025-05-11 09:25] LABS: Reticulocytes Absolute 0.063 X10*6/uL (0.026-0.095)
[2025-05-11 09:34] LABS: Alanine Aminotransferase 44 U/L (0-40); Albumin Level 4.4 g/dL (3.5-5.0); Alkaline Phosphatase 91 U/L (39-117); Aspartate Amino Transferase 43 U/L (5-37); Total Protein 7.1 g/dL (6.5-8.0)
[2025-05-11 12:00] VITALS: BP 122/68; PULSE 63; RESP 14; TEMP 36.2; O2SAT 97
[2025-05-11 15:19] VITALS: BP 116/58; PULSE 94; RESP 16; TEMP 36.7; O2SAT 97
[2025-05-11 19:09] VITALS: BP 119/69; PULSE 75; RESP 16; TEMP 36.3; O2SAT 98
[2025-05-11 23:04] VITALS: BP 120/71; PULSE 79; RESP 18; TEMP 36.8; O2SAT 98
[2025-05-12 03:24] VITALS: BP 113/67; PULSE 71; RESP 18; TEMP 36.2; O2SAT 99
[2025-05-12 07:37] VITALS: BP 107/55; PULSE 67; RESP 16; TEMP 36.6; O2SAT 98
[2025-05-12] MEDS: 0.9 % Sodium Chloride Flush 3 ML SYRINGE IVFLUSH ×3 (07:40→19:24)
--- NOTE | 2025-05-12 09:26 | P.PNIM_ITS ---
Subjective Subjective Date of Service: 05/12/25 Interval History: Left leg feeling better, right leg feeling worse, still needing pain meds Physical Exam 2 Exam: Exam: General: AO X 3, no acute distress Resp: CTA bilateral, no accessory muscles used CVS: S1,S2,RRR GI: soft, non tender, non distended Neuro: motor grossly intact, alert Psych: appropriate affect, appropriate insight Vital Signs: Vital Signs: Last Vital Signs Temp 97.9 F 05/12/25 07:37 Pulse 67 05/12/25 07:37 Resp 16 05/12/25 07:37 BP 107/55 L 05/12/25 07:37 Pulse Ox 98 05/12/25 07:37 O2 Del Method Room Air 05/12/25 07:37 BMI result Body Mass Index 26.6 Objective Data Active Medications Acetaminophen (Acetaminophen 325 Mg Tablet) 650 mg PO Q6H PRN PRN Reason: Pain, Mild 1-3,fever,headache Last Admin: 05/12/25 07:36 Dose: 650 mg Documented By: THANIA Benzonatate (Benzonatate 100 Mg Capsule) 100 mg PO TID PRN PRN Reason: Cough Calcium Carbonate (Calcium Carbonate 750 Mg Tab.Chew) 750 mg PO Q4H PRN PRN Reason: Heartburn Docusate Sodium (Docusate Sodium 100 Mg Capsule) 100 mg PO BID [facility] Last Admin: 05/12/25 07:36 Dose: 100 mg Documented By: THANIA Enoxaparin Sodium (Enoxaparin Sodium 40 Mg/0.4 Ml Syringe) 40 mg SUBCUT Q24H [facility] Last Admin: 05/11/25 10:53 Dose: 40 mg Documented By: THANIA Folic Acid (Folic Acid 1 Mg Tablet) 1 mg PO DAILY [facility] Last Admin: 05/12/25 07:36 Dose: 1 mg Documented By: THANIA Hydromorphone HCl (Hydromorphone Hcl 1 Mg/Ml Syringe) 1 mg IVPUSH Q4H PRN; Protocol PRN Reason: Pain, Severe (Pain Scale 7-10) Last Admin: 05/12/25 05:27 Dose: 1 mg Documented By: LUCHO Ibuprofen (Ibuprofen 400 Mg Tablet) 400 mg PO Q6H PRN PRN Reason: Pain, Moderate(Pain Scale 4-6) Last Admin: 05/12/25 03:32 Dose: 400 mg Documented By: LUCHO Magnesium Hydroxide (Milk Of Magnesia 30 Ml Oral.Susp) 30 ml PO DAILY PRN PRN Reason: Constipation Melatonin (Melatonin 3 Mg Tablet) 6 mg PO BEDTIME PRN PRN Reason: Insomnia Last Admin: 05/10/25 20:11 Dose: 6 mg Documented By: LUCHO Polyethylene Glycol (Polyethylene Glycol 3350 17 Gm Powd.Pack) 17 gm PO DAILY PRN PRN Reason: Constipation Senna (Sennosides 8.6 Mg Tablet) 17.2 mg PO BEDTIME [facility] Last Admin: 05/11/25 20:54 Dose: 17.2 mg Documented By: LUCHO Sodium Chloride (0.9 % Sodium Chloride Flush 3 Ml Syringe) 3 ml IVFLUSH QSHIFT [facility] Last Admin: 05/12/25 07:40 Dose: 3 ml Documented By: DEANNEUSIBriana Labs 05/11/25 05:25 05/11/25 05:25 Labs: Laboratory Results - last 24 hr 05/11/25 05:25 Absolute Retic 0.063 Percent Retic 1.4 Immature Retic Fraction 21.2 H Retic Hgb Equivalent 28.5 L Total Bilirubin 2.8 H Direct Bilirubin 0.6 H AST 43 H ALT 44 H Alkaline Phosphatase 91 Lactate Dehydrogenase 257 Total Protein 7.1 Albumin 4.4 Assessment and Plan (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 Plan 25M PMH betathallasemia/sickle cell - last crisis in childhood, presented with bilateral leg pain bilateral leg pain,due to sickle cell crisis ivf, o2, pain control, monitor labs, hem following Follow up hemoglobin electrophoresis Ultrasound with splenomegaly CT with distal left femur osteonecrosis and left pelvic lesion ?osteonectrosis or abscess - outpatient mri acute thrombocytopenia ?due to hemolysis monitor dvt prophylaxis - continue lovenox, will change to mechanical if plt<50K full code reason for continued hospitalization:pain control Quality Stroke Does the patient have a stroke diagnosis?: No VTE Prior VTE?: No VTE Risk Level:: Medical - moderate - high VTE Device Contraindication: Treatment Not Indicated VTE Drug Contraindication: N/A - Med Ordered
[2025-05-12 12:00] VITALS: BP 103/58; PULSE 55; RESP 16; TEMP 36; O2SAT 98
--- NOTE | 2025-05-12 13:11 | PM.HEMONCPN ---
Medical Summary - Medical Summary Date of Service: 05/12/25 Chief complaint: Leg pain Primary Care Provider: None Physician Research Professional Utilized?: No - Canadian Speaking Interval History Interval history: Ochoa Carey is a 25 year old male with history of beta+ thalassemia trait who presented to emergency room on 05/08/2025 with complaints of bilateral lower extremity, thigh and leg pain that worsened rapidly a few hours before presentation. Patient states that he was in his usual state of health and did not have any triggering factors such as fever or symptoms of upper respiratory infection. He was diagnosed with beta thalassemia trait in infancy. His mother has thalassemia trait and his father had the sickle trait. He was admitted at age 3 for a pain crisis, he used to see a dough panner as a child but never as an adult. He was on folic acid for a few years but later on he was told that he did not need any medications as his counts were normal. He moved from [place] for a job 2 years ago. His work is mostly at a desk and is not demanding physically. He smokes cigars and uses marijuana. No history of alcoholism. Labs on admission revealed WBC of 6.6, hemoglobin of 14.3 gram/dL with MCV 76.3. His platelet counts were 118 K. He was noted to have mild hyperbilirubinemia but normal LDH. With hydration, his hemoglobin dropped to 13 gram/dL-11.8 gram/dL. His platelets have slowly trended down. He has undergone imaging studies. His pain is better controlled. Review of Systems - Constitutional Reports as per [facility] Medical History: Medical History (Last Reviewed 05/08/25 @ 08:07 by Girma Ortiz MD) Sickle cell beta thalassemia Social History: Social History (Last Reviewed 05/08/25 @ 08:07 by Girma Ortiz MD) Living Situation History: Household Members: Other Household Members Other:: roommate Housing: Apartment Do you presently have visiting nurse or other home services: No Tobacco History: Patient Tobacco Use Status: Current someday Tobacco Tobacco use type: Cigar e-Cigarette/Vaping Use: Currently Using Second Hand Smoke Exposure: No Substance Use History: Substance Use Type: Marijuana Occupation Assessmet: service: No Home Medications and Allergies Current Medications: Current Medications Acetaminophen (Acetaminophen 325 Mg Tablet) 650 mg PO Q6H PRN PRN Reason: Pain, Mild 1-3,fever,headache Last Admin: 05/12/25 07:36 Dose: 650 mg Benzonatate (Benzonatate 100 Mg Capsule) 100 mg PO TID PRN PRN Reason: Cough Calcium Carbonate (Calcium Carbonate 750 Mg Tab.Chew) 750 mg PO Q4H PRN PRN Reason: Heartburn Docusate Sodium (Docusate Sodium 100 Mg Capsule) 100 mg PO BID [facility] Last Admin: 05/12/25 07:36 Dose: 100 mg Enoxaparin Sodium (Enoxaparin Sodium 40 Mg/0.4 Ml Syringe) 40 mg SUBCUT Q24H [facility] Last Admin: 05/12/25 10:35 Dose: 40 mg Folic Acid (Folic Acid 1 Mg Tablet) 1 mg PO DAILY [facility] Last Admin: 05/12/25 07:36 Dose: 1 mg Hydromorphone HCl (Hydromorphone Hcl 1 Mg/Ml Syringe) 1 mg IVPUSH Q4H PRN; Protocol PRN Reason: Pain, Severe (Pain Scale 7-10) Last Admin: 05/12/25 09:30 Dose: 1 mg Ibuprofen (Ibuprofen 400 Mg Tablet) 400 mg PO Q6H PRN PRN Reason: Pain, Moderate(Pain Scale 4-6) Last Admin: 05/12/25 10:34 Dose: 400 mg Magnesium Hydroxide (Milk Of Magnesia 30 Ml Oral.Susp) 30 ml PO DAILY PRN PRN Reason: Constipation Melatonin (Melatonin 3 Mg Tablet) 6 mg PO BEDTIME PRN PRN Reason: Insomnia Last Admin: 05/10/25 20:11 Dose: 6 mg Polyethylene Glycol (Polyethylene Glycol 3350 17 Gm Powd.Pack) 17 gm PO DAILY PRN PRN Reason: Constipation Senna (Sennosides 8.6 Mg Tablet) 17.2 mg PO BEDTIME [facility] Last Admin: 05/11/25 20:54 Dose: 17.2 mg Sodium Chloride (0.9 % Sodium Chloride Flush 3 Ml Syringe) [facility] Last Admin: 05/12/25 07:40 Dose: 3 ml Home Medications ?Medication ?Instructions ?Recorded ?Confirmed ?Type No Known Home Meds 05/08/25 05/08/25 History Allergies Allergy/AdvReac Type Severity Reaction Status Date / Time No Known Allergies Allergy Verified 05/08/25 02:32 Exam Vital signs: Vital Signs Temp 96.8 F 05/12/25 12:00 Pulse 55 05/12/25 12:00 Resp 16 05/12/25 12:00 BP 103/58 L 05/12/25 12:00 Pulse Ox 98 05/12/25 12:00 O2 Del Method Room Air 05/12/25 12:00 Intake & Output 05/11/25 05/12/25 05/12/25 18:59 06:59 18:59 Intake Total 960 / 1200 240 / 1200 Balance 960 / 1200 240 / 1200 Intake: Intake, Oral Amount 960 / 1200 240 / 1200 Other: Breakfast % Eaten 75% Lunch % Eaten 100% Number of Unmeasured Voids 3 1 Urine Bathroom Urine Color Yellow Weight 94 kg BMI result Body Mass Index 26.6 - Constitutional Present: no acute distress - Routine HEENT Exam Head: Present: normal inspection - Routine Respiratory Exam Present: CTAB. Absent: accessory muscle use, wheezes - Routine Cardiovascular Exam Cardiovascular: Present: RRR, S1, S2 - Routine Abdominal Exam Present: soft. Absent: guarding - Routine Extremities Exam Present: pulses intact. Absent: pedal edema - Routine Skin Exam Present: intact Data - Labs CBC & Chem 7: 05/11/25 05:25 05/11/25 05:25 Labs: Laboratory Last Values WBC 3.3 X10*3/uL (4.8-10.8) L 05/11/25 05:25 RBC 4.37 X10*6/uL (4.60-5.80) L 05/11/25 05:25 Hgb 12.0 g/dl (14.0-18.0) L 05/11/25 05: Hct 33.6 % (42.0-52.0) L 05/11/25 05:25 MCV 76.9 fL (80.0-98.0) L 05/11/25 05:25 MCH 27.5 pg (27.0-33.0) 05/11/25 05: MCHC 35.7 g/dl (31.0-36.0) 05/11/25 05:25 RDW 15.3 % (11.0-16.0) 05/11/25 05:25 Plt Count 72 X10*3/uL (160-400) L 05/11/25 05:25 MPV 10.4 fL (9.4-12.4) 05/11/25 05:25 Immature Gran % (Auto) 0.3 % (0.0-0.4) 05/09/25 06:18 Neut % (Auto) 62.9 % (45-73) 05/09/25 06:18 Lymph % (Auto) 21.2 % (20-40) 05/09/25 06:18 [place] % (Auto) 14.8 % (2-11) H 05/09/25 06:18 Eos % (Auto) 0.5 % (0-4) 05/09/25 06:18 Baso % (Auto) 0.3 % (0-2) 05/09/25 06:18 Lymph # (Auto) 0.8 X10*3/uL (1.2-4.9) L 05/09/25 06:18 [place] # (Auto) 0.6 X10*3/uL (0.1-1.2) 05/09/25 06:18 Eos # (Auto) 0.0 X10*3/uL (0.0-0.4) 05/09/25 06:18 Baso # (Auto) 0.0 X10*3/uL (0.0-0.2) 05/09/25 06:18 Abs Immat Gran (auto) 0.01 X10*3/uL (0.00-0.03) 05/09/25 06:18 Absolute Neuts (auto) 2.4 x10*3/uL (2.0-8.3) 05/09/25 06:18 Absolute Nucleated RBC 0.000 X10*3/uL (0.0-0.012) 05/11/25 05:25 Nucleated RBC % (auto) 0.0 /100WBC (0.0-0.2) 05/11/25 05:25 Absolute Retic 0.063 X10*6/uL (0.026-0.095) 05/11/25 05:25 Absolute Retic Cancelled 05/11/25 05:25 Percent Retic 1.4 % (0.5-1.8) 05/11/25 05:25 Percent Retic Cancelled 05/11/25 05:25 Immature Retic Fraction 21.2 % (2.3-13.4) H 05/11/25 05:25 Immature Retic Fraction Cancelled 05/11/25 05:25 Retic Hgb Equivalent 28.5 pg (30.0-35.0) L 05/11/25 05:25 Retic Hgb Equivalent Cancelled 05/11/25 05:25 Sodium 140 mmol/L (135-145) 05/11/25 05:25 Potassium 3.9 mmol/L (3.3-5.1) 05/11/25 05:25 Chloride 102 mmol/L (96-108) 05/11/25 05:25 Carbon Dioxide 29 mmol/L (22-29) 05/11/25 05:25 Anion Gap 13 (12-20) 05/11/25 05:25 BUN 8 mg/dL (9-16) L 05/11/25 05:25 Creatinine 0.74 mg/dL (0.5-1.4) 05/11/25 05:25 Estim Creat Clear Calc 174.3 05/11/25 05:25 Estimated GFR > 60 05/11/25 05:25 Random Glucose 104 mg/dL (60-115) 05/11/25 05:25 Calcium 9.3 mg/dL (8.4-10.2) 05/11/25 05:25 Magnesium 1.8 mg/dL (1.6-2.6) 05/10/25 05:44 Iron 77 mcg/dL (45-160) 05/08/25 02:41 TIBC 288 mcg/dL (228-428) 05/08/25 02:41 % Saturation 27 % (15-50) 05/08/25 02:41 Unsat Iron Binding 211 ug/dL 05/08/25 02:41 Total Bilirubin 2.8 mg/dL (0.0-1.0) H 05/11/25 05:25 Direct Bilirubin 0.6 mg/dL (0.0-0.5) H 05/11/25 05:25 AST 43 U/L (5-37) H 05/11/25 05:25 ALT 44 U/L (0-40) H 05/11/25 05:25 Alkaline Phosphatase 91 U/L (39-117) 05/11/25 05:25 Lactate Dehydrogenase 257 U/L (118-273) 05/11/25 05:25 Total Creatine Kinase 172 U/L (38-174) 05/08/25 02:41 Troponin I High Sens 3.2 ng/L (<3.5-35.0) 05/08/25 02:41 Total Protein 7.1 g/dL (6.5-8.0) 05/11/25 05:25 Albumin 4.4 g/dL (3.5-5.0) 05/11/25 05:25 Urine Color Yellow 05/10/25 13:58 Urine Appearance Clear 05/10/25 13:58 Urine pH 7.5 (5.0-9.0) 05/10/25 13:58 Ur Specific [place] <= 1.005 (1.005-1.025) 05/10/25 13:58 Urine Protein Negative mg/dL (Neg-Trace) 05/10/25 13:58 Urine Glucose (UA) Negative mg/dL (Negative) 05/10/25 13:58 Urine Ketones Negative mg/dL (Negative) 05/10/25 13:58 Urine Blood Negative (Negative) 05/10/25 13:58 Urine Nitrite Negative (Negative) 05/10/25 13:58 Ur Leukocyte Esterase Negative (Negative) 05/10/25 13:58 Influenza Type A (PCR) NEGATIVE (Negative) 05/08/25 05:15 Influenza Type B (PCR) NEGATIVE (Negative) 05/08/25 05:15 RSV RNA Qual (PCR) NEGATIVE (Negative) 05/08/25 05:15 SARS-CoV-2 RNA (RT-PCR) NEGATIVE (Negative) 05/08/25 05:15 - Imaging Radiologist's impression: ITS Impressions Pelvis CT 05/11/25 10:34 IMPRESSION: There is a 10 mm targetoid lesion in the left iliac bone, adjacent to the anterior mid left SI joint. This could represent an intraosseous abscess, bone infarct, and is much less likely to represent an intraosseous mass/neoplasm. If clinically indicated, follow-up MRI pelvis without and with IV contrast. Electronically signed by: Orestes Hays MD 05/11/2025 12:[address] 05/11/25 15:33 IMPRESSION: No evidence of osteonecrosis. Moderate osteoarthritis of the right knee, likely posttraumatic in nature, status post ACL reconstruction. Electronically signed by: Orestes Hays MD 05/11/2025 05:31 PM EDT RP Femur CT 05/11/25 16:33 IMPRESSION: Suspected osteonecrosis involving the distal left femur, medial metadiaphysis. Electronically signed by: Orestes Hays MD 05/11/2025 05:27 PM EDT RP Assessment and Plan Patient Active problem list reviewed?: Yes (1) Sickle cell beta thalassemia Status: Acute Assessment and plan: 1. This is a 25-year-old male with sickle beta thalassemia trait who has been admitted with bilateral lower extremity pain. According to patient as well as his mother, patient was diagnosed with this condition in infancy in [place] where he is from. He was admitted at age 3 for her pain crisis, he was on folic acid briefly as a child. He has never seen a dough panner as an adult. He presented with bilateral thigh and lower extremity pain without any triggering factors. Admission labs revealed microcytosis without anemia but low platelet count of 118 K. he has been started on hydration, folic acid supplementation and Lovenox for DVT prophylaxis. His platelet count as well as RBC and WBC counts are trending down. Part of this could be dilutional, mild hemolysis. 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 Lovenox causing type 1 thrombocytopenia or non immune mediated thrombocytopenia is also a possibility. Discontinue Lovenox. Continue folic acid, pain management. Ultrasound abdomen showed splenomegaly, spleen size of 19.[address] pelvis and bilateral femur revealed left iliac lesion appeared sclerotic. Right femur scan revealed moderate osteoarthritis of right knee likely posttraumatic in nature. Status post ACL reconstruction. Left femur CT revealed g last density in the medial metadiaphysis 5 cm in length. Suspected osteonecrosis..? Continue Dilaudid, started on Motrin for bone and joint pain. He may have to be started on hydroxyurea eventually for above reasons. Patient will be referred to sickle Clinic at [facility] upon discharge. - Time Spent With Patient Time Spent with Patient (in minutes): 20
[2025-05-12 15:22] VITALS: BP 125/70; PULSE 75; RESP 18; TEMP 36.1; O2SAT 98
[2025-05-12 19:42] VITALS: BP 117/74; PULSE 63; RESP 18; TEMP 36.2; O2SAT 100
[2025-05-12 23:38] VITALS: BP 110/62; PULSE 65; RESP 18; TEMP 36.3; O2SAT 98
[2025-05-13 03:20] VITALS: BP 124/84; PULSE 72; RESP 18; TEMP 36.3; O2SAT 92
[2025-05-13 04:05] VITALS: RESP 16
[2025-05-13 07:25] LABS: Hematocrit 32.6 % (42.0-52.0); Hemoglobin 11.8 g/dl (14.0-18.0); Mean Corpuscular HGB Conc 36.2 g/dl (31.0-36.0); Mean Corpuscular Hemoglobin 27.8 pg (27.0-33.0); Mean Corpuscular Volume 76.9 fL (80.0-98.0); NRBC Abs Auto 0.000 X10*3/uL (0.0-0.012); NRBC Pct Auto 0.0 /100WBC (0.0-0.2); Red Blood Count 4.24 X10*6/uL (4.60-5.80); White Blood Count 2.7 X10*3/uL (4.8-10.8)
[2025-05-13 07:27] VITALS: BP 109/63; PULSE 60; RESP 16; TEMP 36.1; O2SAT 99
[2025-05-13 07:28] LABS: Platelet Count 73 X10*3/uL (160-400)
[2025-05-13] MEDS: oxyCODONE HCl Immed Release 5 MG TABLET PO ×3 (07:35→13:17)
[2025-05-13 07:46] LABS: Anion Gap 13 (12-20); Blood Urea Nitrogen 12 mg/dL (9-16); Calcium 9.5 mg/dL (8.4-10.2); Carbon Dioxide 27 mmol/L (22-29); Chloride 102 mmol/L (96-108); Creatinine Clr Calc Pharmacy 174.3; Estimated Glomerular Filt Rate > 60; Potassium 4.1 mmol/L (3.3-5.1); Sodium 138 mmol/L (135-145)
--- NOTE | 2025-05-13 07:47 | PC.NURSE ---
prn oxycodone ordered and pulled from pyxsis, scanned and opened and then looked at screen and realized med had been dc'd and switched by provider...provider notified and new one time dose ordered. instrusted by pharmacy to waste orginal med and pull out new med under new one time order.
--- NOTE | 2025-05-13 11:45 | P.DS_ITS ---
DS: Providers Provider Date of Service: 05/13/25 Date of admission: 05/08/25 06:41 Date of discharge: 05/13/25 Primary care physician: None Physician Consults: 05/09/25 08:39 Consult to Hematology / Oncology Routine Consulting Provider: [facility] [place] Oncology/Hematology Reason for consultation: sickle thal DS: Diagnosis Discharge Diagnosis (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 DS: Summary Hospital Course Hospital Course: HPI:25M PMH betathallasemia/sickle cell - last crisis in childhood, presented with leg pain. Patient states that pain is ongoing for about 1 day. Feels achy specially in joints, mild shortness of breath. Has not had a crisis in over 20 years but suspects that is what is going on. Denies chest pain, fever, chills. In ED, chest x-ray negative, saturating well on room air, lab significant for total bilirubin of 2.4 otherwise unremarkable. Hospital course: 25M PMH betathallasemia/sickle cell - last crisis in childhood, presented with bilateral leg pain-thought to be bilateral leg pain possible due to sickle cell crisis: Patient received IV fluid, oxygen, pain control-seems to be improved with above management. Patient will be going home with p.o. pain medication and bowel regimen, folic acid. CT with distal left femur osteonecrosis ?-consider outpatient MRI. Patient is ambulating fine. Seen by hematology:CT pelvis and bilateral femur revealed left iliac lesion appeared sclerotic. Right femur scan revealed moderate osteoarthritis of right knee likely posttraumatic in nature. Status post ACL reconstruction. Left femur CT revealed g last density in the medial metadiaphysis 5 cm in length. Suspected osteonecrosis.? Currently recommended Pain management,He may have to be starting on hydroxyurea eventually for above reasons. Patient is to follow up with the [facility] sickle cell clinic. mild elevated lft's:possible due to sickle cell /mild hemolysis :elevated mild same range ,moniter lft's outpatient. Patient has thrombocytopenia: Platelets stable around 70s, no bleeding. ultrasound shows splenomegaly. plan moniter cbc ,cmp , consider hip mri outpatient. pain management -oxycodone ,ibuprofen , folic acid ,consider started on hydroxyurea outpatient. patient strongly encouraged for getting a PCP appointment. Also patient is to follow-up [facility] sickle cell clinic-for further workup- Follow up hemoglobin electrophoresis. Above management discussed with the patient in detail length she understand and in agreement with the above plan, time spent 45 minutes . All questions answered. Staff was present during conversation. Time Attestation Total time managing care of this patient today: 45 mintues. Discharge Coordination Time (in mins): 45 min Quality: Safe Use of Opioids Does Pt have an Active Cancer Diagnosis on the Problem List?: No Quality: Stroke Does the patient have a stroke diagnosis?: No Physical Exam Exam: Exam: General: AO X 3, no acute distress Resp: air entry fair , no rales or wheezing. CVS: S1,S2,RRR. GI: soft, non tender, non distended Neuro: motor grossly intact, alert. Vital Signs: Vital Signs: Last Vital Signs Temp 96.9 F 05/13/25 07:27 Pulse 60 05/13/25 07:27 Resp 16 05/13/25 07:27 BP 109/63 05/13/25 07:27 Pulse Ox 99 05/13/25 07:27 O2 Del Method Room Air 05/13/25 07:27 BMI result Body Mass Index 26.6 DS: Data Data Completed and Pending Labs on day of discharge: Laboratory Results - last 24 hr 05/13/25 07:06 WBC 2.7 L RBC 4.24 L Hgb 11.8 L Hct 32.6 L MCV 76.9 L MCH 27.8 MCHC 36.2 H RDW 15.4 Plt Count 73 L MPV 9.4 Absolute Nucleated RBC 0.000 Nucleated RBC % (auto) 0.0 Sodium 138 Potassium 4.1 Chloride 102 Carbon Dioxide 27 Anion Gap 13 BUN 12 Creatinine 0.74 Estim Creat Clear Calc 174.3 Estimated GFR > 60 Random Glucose 94 Calcium 9.5 Imaging Chest x-ray: Radiologist's impression: ITS Impressions Pelvis CT 05/11/25 10:34 IMPRESSION: There is a 10 mm targetoid lesion in the left iliac bone, adjacent to the anterior mid left SI joint. This could represent an intraosseous abscess, bone infarct, and is much less likely to represent an intraosseous mass/neoplasm. If clinically indicated, follow-up MRI pelvis without and with IV contrast. Femur CT 05/11/25 15:33 IMPRESSION: No evidence of osteonecrosis. Moderate osteoarthritis of the right knee, likely posttraumatic in nature, status post ACL reconstruction. Femur CT 05/11/25 16:33 IMPRESSION: Suspected osteonecrosis involving the distal left femur, medial metadiaphysis. Discharge Plan Discharge Anticipated Discharge Date/Time: 05/13/25 11:21 Patient Disposition: Home, Self-Care Discharge Diagnosis: possible sickle cell crisis , splenomegaly, elevated LFT,? Osteonecrosis Referrals: Physician,Brittany [Primary Care Provider, Medical] - 1 Week Lm Lara MD [Physician, Oncology] - 1 Week Referral Note: sickle/thal with crisis and osteonecrosis Discharge Medications: New ibuprofen 400 mg Tablet 400 mg PO Q6H PRN (Reason: Pain, Moderate(Pain Scale 4-6)) Qty: 15 0RF docusate sodium 100 mg Capsule 100 mg PO BID PRN (Reason: constipation) Qty: 60 0RF oxycodone 5 mg Tablet 5 mg PO Q4H PRN (Reason: Pain, Moderate(Pain Scale 4-6)) Qty: 20 0RF Rx Instructions: Partial Fill upon patient request. sennosides [Senna Lax] 8.6 mg Tablet 17.2 mg PO BEDTIME PRN (Reason: constipation) Qty: 60 0RF folic acid 1 mg Tablet 1 mg PO DAILY Qty: 90 0RF omeprazole 20 mg capsule,delayed release(DR/EC) 20 mg PO DAILY Qty: 20 0RF Discharge Orders: Discharge Order (Routine); Ordered 05/13/25 Ordered By: Matthew Conteh Diet: Advance to usual diet Activity on Discharge: As tolerated Stand Alone Forms: Patient Portal Discharge page, Work/School Release Print Language: Barbadian Care Plan Goals: 25M PMH betathallasemia/sickle cell - last crisis in childhood, presented with bilateral leg pain-thought to be bilateral leg pain possible due to sickle cell crisis: Patient received IV fluid, oxygen, pain control-seems to be improved with above management. Patient will be going home with p.o. pain medication and bowel regimen, folic acid. CT with distal left femur osteonecrosis ?-consider outpatient MRI. Patient is ambulating fine. Seen by hematology:CT pelvis and bilateral femur revealed left iliac lesion appeared sclerotic. Right femur scan revealed moderate osteoarthritis of right knee likely posttraumatic in nature. Status post ACL reconstruction. Left femur CT revealed g last density in the medial metadiaphysis 5 cm in length. Suspected osteonecrosis.? Currently recommended Pain management,He may have to be starting on hydroxyurea eventually for above reasons. Patient is to follow up with the [facility] sickle cell clinic. mild elevated lft's:possible due to sickle cell /mild hemolysis :elevated mild same range ,moniter lft's outpatient. Patient has thrombocytopenia: Platelets stable around 70s, no bleeding. ultrasound shows splenomegaly. Health Concerns: as above. Plan of Treatment: moniter cbc ,cmp , consider hip mri outpatient. pain management -oxycodone ,ibuprofen , folic acid ,consider started on hydroxyurea outpatient. patient strongly encouraged for getting a PCP appointment. Also patient is to follow-up [facility] sickle cell clinic-for further workup- Follow up hemoglobin electrophoresis. Assessment: As above.
[2025-05-13 12:00] VITALS: BP 111/66; PULSE 80; RESP 12; TEMP 36.2; O2SAT 99
--- NOTE | 2025-05-13 12:10 | MHC.CM.PN ---
DP: PT HAS BEEN MEDICALLY CLEARED FOR DC HOME, NO SERVICES. PT HAS OWN [facility]
[2025-05-15 07:24] LABS: Hematocrit 37.5 % (38.5-50.0); Hemoglobin 12.3 g/dL (13.2-17.1); MCH 27.6 pg (27.0-33.0); MCV 84.3 fL (80.0-100.0); RBC 4.45 Million/uL (4.20-5.80); RDW 15.8 % (11.0-15.0)
== END 2025-05-13 13:27 | disposition home or self-care (01) | DRG 662 ==
LOC: HO.ED 06:43 → HO.EDOVER 06:46 → HO.IMC 07:54 → HO.EDOVER 10:21 → HO.IMC 10:24 → HO.S3 16:51
PROVIDERS: Internal Medicine; Admitting Provider Hospitalist; Emergency Provider Emergency Medicine; Visit Provider Internal Medicine
DX: D57.4 Sickle-cell thalassemia (principal); M90.552 Osteonecrosis in diseases classified elsewhere, left thigh; D69.6 Thrombocytopenia, unspecified; F17.290 Nicotine dependence, other tobacco product, uncomplicated; M17.31 Unilateral post-traumatic osteoarthritis, right knee; R16.1 Splenomegaly, not elsewhere classified; Z20.822 Contact with and (suspected) exposure to COVID-19; Z71.6 Tobacco abuse counseling
CPT/HCPCS: 36415; 71045; 72192; 73700; 76700; 80048; 80053; 80076; 81003; 82550; 83020; 83540; 83615; 83735; 84484; 85014; 85018; 85025; 85027; 85041; 85045; 87637; 93005; 99285; J1171; J1650; J2270; J7120

== ENCOUNTER → 2025-05-08 05:08 | Outpatient (BNV) | payer BC, SELFPAY | PROVIDERS: Admitting Provider Hospitalist; Emergency Provider Emergency Medicine; Visit Provider Radiology Diagnostic Radiology | DX: R52 Pain, unspecified (principal) | CPT/HCPCS: 71045 ==

== ENCOUNTER → 2025-05-08 05:08 | Outpatient (BNV) | payer BC, SELFPAY | PROVIDERS: Admitting Provider Hospitalist; Emergency Provider Emergency Medicine; Visit Provider Internal Medicine Cardiovascular Disease | DX: R00.1 Bradycardia, unspecified (principal) | CPT/HCPCS: 93010 ==

== ENCOUNTER 2025-05-08 06:41 | Outpatient (BNV) | payer BC, SELFPAY | END 2025-05-10 11:02 | PROVIDERS: Admitting Provider Hospitalist; Emergency Provider Emergency Medicine; Visit Provider Radiology Diagnostic Radiology | DX: R16.1 Splenomegaly, not elsewhere classified (principal) | CPT/HCPCS: 76700 ==

== ENCOUNTER 2025-05-08 06:41 | Outpatient (BNV) | payer BC, SELFPAY | END 2025-05-11 10:34 | PROVIDERS: Admitting Provider Hospitalist; Emergency Provider Emergency Medicine; Visit Provider Radiology Diagnostic Radiology | DX: M46.1 Sacroiliitis, not elsewhere classified (principal); M17.11 Unilateral primary osteoarthritis, right knee; M85.862 Other specified disorders of bone density and structure, left lower leg | CPT/HCPCS: 72192; 73700 ==

== ENCOUNTER → 2025-05-08 06:41 | Outpatient (BNV) | payer BC, SELFPAY | PROVIDERS: Admitting Provider Hospitalist; Emergency Provider Emergency Medicine; Visit Provider Internal Medicine | DX: D57.00 Hb-SS disease with crisis, unspecified (principal) | CPT/HCPCS: 99254 ==

== ENCOUNTER → 2025-05-08 06:41 | Outpatient (BNV) | payer BC, SELFPAY | PROVIDERS: Admitting Provider Hospitalist; Emergency Provider Emergency Medicine; Visit Provider Internal Medicine | DX: D57.40 Sickle-cell thalassemia without crisis (principal) | CPT/HCPCS: 99222; 99232; 99233 ==